=== PATIENT | male | born 2000 | race Caucasian/White ===

== ENCOUNTER 2020-08-19 18:11 | Emergency (ER) | payer OTHER ==
[~2020-08-19] VITALS: Ht 172.7 cm; Wt 56.7 kg
[2020-08-19] MEDS ORDERED: AUGMENTIN 875-1 EACH PO (19:19)
[2020-08-19 19:27] VITALS: BP 122/70
== END 2020-08-19 19:28 | disposition home or self-care (01) ==
LOC: M.ERS 18:11
DX: S61.551A Open bite of right wrist, initial encounter (principal); S61.251A Open bite of left index finger without damage to nail, initial encounter; W54.0XXA Bitten by dog, initial encounter; Y93.89 Activity, other specified; Y92.89 Other specified places as the place of occurrence of the external cause; Y99.8 Other external cause status